=== PATIENT | female | born 1980 | race Caucasian/White ===

== ENCOUNTER 2017-04-15 00:28 | Emergency (ER) | payer OTHER ==
[2017-04-15 00:49] VITALS: BP 125/77; PULSE 95; TEMP 97.6; BMI 29.8
--- NOTE | 2017-04-15 00:51 | PDOC ---
History of Present Illness - General Chief Complaint: Urinary Problem Stated Complaint: UTI Time Seen by Provider: 04/15/17 00:51 History Source: Patient Exam Limitations: No Limitations - History of Present Illness Initial Comments: 04/15/17 01:17 This is a 36-year-old female who has a long history of chronic renal problems including multiple urinary tract infections in the past secondary to abnormal ureteral anatomy. Patient comes in complaining of urinary frequency but no dysuria. Patient denies any fevers but is complaining of chills.. Patient is complaining of some low back pain and flank pain on the left. Patient denies any nausea or vomiting. PAST MEDICAL HISTORY: no significant history PAST SURGICAL HISTORY: no significant history FAMILY HISTORY: no pertinant history SOCIAL HISTORY: Pt lives with family and is employed. MEDICATIONS: reviewed ALLERGIES: As per nursing notes Review of Systems General: No fevers or chills, no weakness, no weight loss HEENT: No change in vision. No sore throat,. No ear pain CardioVascular: No chest pain or shortness of breath Respiratory:No cough, or wheezing. Gastrointestinal: no nausea, vomitting, diarrhea or constipation, No rectal bleeding Genitourinary: No dysuria, hematuria, or frequency Musculoskeletal: No joint or muscle pain or swelling Neurologic: No headache, vertigo, dizziness or loss of consciousness Psychiatric: nor depression Skin: No rashes or easy bruising Endocrine: no increased thirst or abnormal weight change Allergic: no skin or latex allergy All other systems reviewed and normal GENERAL: The patient is awake, alert, and fully oriented, in no acute distress. HEAD: Normal with no signs of trauma. EYES: Pupils equal, round and reactive to light, extraocular movements intact, sclera anicteric, conjunctiva clear. EXTREMITIES: Normal range of motion, no edema. NEUROLOGICAL: Normal speech, normal gait. PSYCH: Normal mood, normal affect. SKIN: Warm, Dry, normal turgor, no rashes or lesions noted. 04/15/17 01:50 Assessment and plan: This is a 36-year-old female who comes in complaining left lower back pain and urinary frequency. Patient has a history of urinary tract infections in the past. Patient urine was positive for leukocytes and bacteria and red blood cells. Patient given ceftriaxone IV and a prescription for Cipro twice a day for the next 10 days. Past History - Past Medical History Allergies/Adverse Reactions: Allergies Allergy/AdvReac Type Severity Reaction Status Date / Time Sulfa (Sulfonamide Allergy Verified 04/15/17 00:55 Antibiotics) Home Medications: Ambulatory Orders Ciprofloxacin HCl [Cipro] 500 mg PO BID #20 tablet 04/15/17 Dextroamphetamine/Amphetamine [Adderall Xr 15 mg Capsule] 15 mg PO DAILY GI Disorders: Yes (REFLUX A CHILD) - Surgical History Abdominal Surgery: Yes (FOR REFLUX) - Suicide/Smoking/Psychosocial Hx Smoking History: Current every day smoker Number of Cigarettes Smoked Daily: 10 Information on smoking cessation initiated: Yes 'Breaking Loose' booklet given: 04/15/17 Substance Use Type: None *Physical Exam - Vital Signs Last Vital Signs Temp Pulse Resp BP Pulse Ox 97.6 F 95 H 16 125/77 100 04/15/17 00:28 04/15/17 00:28 04/15/17 00:28 04/15/17 00:28 04/15/17 00:28 *DC/Admit/Observation/Transfer Diagnosis at time of Disposition: Acute cystitis Qualifiers: Hematuria presence: without hematuria Qualified Code(s): N30.00 - Acute cystitis without hematuria - Discharge Dispostion Disposition: HOME Condition at time of disposition: Stable - Prescriptions Prescriptions: Ciprofloxacin HCl [Cipro] 500 mg PO BID #20 tablet - Patient Instructions Additional Instructions: Take Cipro 1 tablet twice a day for the next 10 days. For the pain take ibuprofen or Tylenol as directed on the bottle Return to the emergency department immediately with ANY new, persistent or worsening symptoms. Continue any medications as previously prescribed by your physician. You should follow up with your primary doctor as soon as possible regarding today's emergency department visit. . Please make sure your doctor reviews the results of your emergency evaluation. Thank you for coming to the Emergency Department today for your care. It was a pleasure to see you today. Please note that your evaluation is INCOMPLETE until you follow-up with your doctor.
[2017-04-15] MEDS ORDERED: CEFTRIAXONE 1 GM in DEXTROSE 5%-WATER - 50 ML IVPB ONE (01:19)
[2017-04-15] MEDS ORDERED: cefTRIAXone SODIUM 1 GM VIAL ONE (01:24)
[2017-04-15 01:44] LABS: URINE APPEARANCE CLOUDY; URINE BILIRUBIN NEGATIVE (NEGATIVE); URINE BLOOD 1+ (NEGATIVE); URINE COLOR DKYELLOW; URINE GLUCOSE (UA) NEGATIVE (NEGATIVE); URINE KETONE NEGATIVE (NEGATIVE); URINE NITRITE POSITIVE (NEGATIVE)
[2017-04-15 01:46] LABS: URINE PROTEIN 1+ (NEGATIVE)
[2017-04-15] MEDS ORDERED: KETOROLAC TROMETHAMINE 30 MG/1 ML VIAL IVPUSH ONE (02:03)
[2017-04-15] MEDS ORDERED: KETOROLAC TROMETHAMINE 30 MG/1 ML VIAL ONE (02:03)
[2017-04-15 02:13] LABS: URINE BACTERIA MANY /hpf (NONE SEEN); URINE HYALINE CAST 8 /lpf; URINE MUCUS MANY; URINE RBC 1 /hpf (0-3)
[2017-04-15 08:52] LABS: URINE LEUK ESTERASE Negative (NEGATIVE)
[2017-04-15 09:34] LABS: URINE WBC 5 /hpf (3-5)
== END 2017-04-15 02:09 | disposition home or self-care (01) ==
LOC: FER 00:28
PROC: 3E03329 Introduction of Other Anti-infective into Peripheral Vein, Percutaneous Approach (ICD-10-PCS; principal; 2017-04-15)
PROC: 3E0333Z Introduction of Anti-inflammatory into Peripheral Vein, Percutaneous Approach (ICD-10-PCS; 2017-04-15)
DX: N30.00 Acute cystitis without hematuria (principal); F17.210 Nicotine dependence, cigarettes, uncomplicated
CPT/HCPCS: 81003; 81015; 84703; 87086; 87186; 96365; 96375; 99282-25

== ENCOUNTER 2017-06-12 01:03 | Emergency (ER) | payer OTHER ==
[2017-06-12 01:07] VITALS: BP 120/77; PULSE 87; TEMP 98.3
[2017-06-12] MEDS ORDERED: AZITHROMYCIN 500 MG TABLET PO ONE (01:35)
--- NOTE | 2017-06-12 01:39 | PDOC ---
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 Patient states that she had unprotected sex approximately 2 weeks ago with partner who was an acquaintance but not a frequent sex partner. Approximately 3-4 days ago, she noted that vaginal discharge was more copious and had a bad odor. No history of nausea/ vomiting or fever/chills. She has 1 previous history of chlamydial infection many years ago. No history of PID/GC or other gynecologic infection except for herpes which is currently inactive. LMP was approximately 10 days ago and was normal in duration and flow. 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) Psychiatric Problems: Yes Other medical history: HERPES - Surgical History Abdominal Surgery: Yes (FOR REFLUX) - Suicide/Smoking/Psychosocial Hx Smoking History: Current every day smoker Number of Cigarettes Smoked Daily: 10 Information on smoking cessation initiated: Yes 'Breaking Loose' booklet given: 06/12/17 Substance Use Type: None Review of Systems - Review of Systems Able to Perform ROS?: Yes Comments:: 12 point review of systems is negative except for what is noted in the history of present illness *Physical Exam - Vital Signs Last Vital Signs Temp Pulse Resp BP Pulse Ox 98.3 F 87 18 120/77 100 06/12/17 01:05 06/12/17 01:05 06/12/17 01:05 06/12/17 01:05 06/12/17 01:05 - Physical Exam Comments: GENERAL: Adult female, alert and oriented 3, in no acute distress HEAD: Normal with no signs of trauma. EYES: PERRLA, EOMI, sclera anicteric, conjunctiva clear. ENT: Ears normal, nares patent, oropharynx clear without exudates. Dry mucous membranes. NECK: Normal range of motion, supple without lymphadenopathy, JVD, or masses. LUNGS: Breath sounds equal, clear to auscultation bilaterally. No wheezes, and no crackles. HEART:Regular rate and rhythm, normal S1 and S2 without murmur, rub or gallop. ABDOMEN:.normal bowel sounds. Mild suprapubic tenderness. No guarding or rebound.No masses No distention. PELVIC: Normal female external genitalia, no lesions/edema/ erythema Moderate amount of whitish yellow discharge in vaginal vault, mildly malodorous Cervix appears normal without lesions/ erythema; no CMT No uterine or adnexal tenderness/masses EXTREMITIES: Normal range of motion, no edema. No clubbing or cyanosis. No erythema, or tenderness. NEUROLOGICAL: Cranial nerves II through XII grossly intact. Normal speech. No focal neurological deficits. MUSCULOSKELETAL: Back non-tender to palpation, no CVA tenderness SKIN: Warm, Dry, normal turgor, no rashes or lesions noted. Progress Note - Progress Note Progress Note: Cervical swab sent for chlamydia/GC amplification Patient treated empirically with Rocephin 250 mg IM and azithromycin 1 g by mouth. Patient will be discharged with instructions to follow-up with her pencil maker within the next 5 days Until she follows up with her pencil maker, she should practice safe sex. If she develops worsening abdominal pain/fever or vomiting, she should return to the emergency room. *DC/Admit/Observation/Transfer Diagnosis at time of Disposition: Vaginal discharge - Discharge Dispostion Disposition: HOME Condition at time of disposition: Stable - Referrals Referrals: STAFF,NOT ON [Primary Care Provider] - - Patient Instructions Printed Discharge Instructions: DI for Vaginal Discharge Additional Instructions: Follow-up with your pencil maker within the next 5 days Practice safe sex until seen by your pencil maker Return to ER if you have worsening pain or if you develop fever/vomiting - Post Discharge Activity
[2017-06-12] MEDS ORDERED: AZITHROMYCIN 250 MG TABLET ONE (01:50)
== END 2017-06-12 02:04 | disposition home or self-care (01) ==
LOC: FER 01:03
DX: N89.8 Other specified noninflammatory disorders of vagina (principal); Z87.440 Personal history of urinary (tract) infections; F99 Mental disorder, not otherwise specified; F17.210 Nicotine dependence, cigarettes, uncomplicated
CPT/HCPCS: 36415; 87491; 87591; 99281-25